=== PATIENT | male | born 1955 | race Caucasian/White ===

== ENCOUNTER → 2018-05-30 | Day surgery (SDC) | payer OTHER ==
[~2018-05-30] MED LIST: CIALIS5 MG PO; FENTANYL CITRATE/PF 100MCG/2 ML INJ ONE; GLUCAGON FOR INJ 1 MG VIAL ONE; HYOSCYAMINE SULFATE 0.5 MG/ML INJ ONE; LIDOCAINE HCL 2% LOCAL INJ 5 ML SDV VIAL INJ ONE; MIDAZOLAM HCL 2 MG/2 ML VIAL ONE; PRAVASTATIN SOD20 MG PO; PROPOFOL IV EMULSION 10 MG/ML 50 ML VIAL ONE; TYLENOL
--- OUTSIDE RECORDS SUMMARY | 2018-05-30 06:53 | XMS REPORT ---
Author Author [facility] Address Unknown Phone Unavailable Care Team Providers Care Well Flow Operator Name Role Phone Unavailable Unavailable Problems This patient has no known problems. Allergies, Adverse Reactions, Alerts This patient has no known allergies or adverse reactions. Medications This patient has no known medications. Results Test Description Test Time Test Comments Text Results Atomic Results Result Comments U/S, ABDOMINAL, COMPLETE 2017-08-26 11:38:00 Reason for Exam:->AAAReason for Exam:- >PalpitationsReason for Exam:->GERD FINAL REPORT Abdominal ultrasound dated 08/26/2017 Clinical information:AAAPalpitationsGERD Comment: Real-time transabdominal ultrasound was performed. Liver is normal in size and measures 14.3 cm in length. The echogenicity of the liver is heterogeneous. No focal lesion is noted in the liver. Spleen is normal in size without focal abnormality. Gallbladder is minimally distended. No gallstone is present. No biliary dilatation is seen. Common bile duct measures 4 mm in diameter. Main portal vein measures 11 mm in diameter. Pancreas is visualized and unremarkable. Right kidney measures 11.7 x 5.6 x 6.6 cm. Left kidney measures 12.2 x 5.9 x 5.3 cm. Echogenicity of both kidney is normal. No hydronephrosis or solid mass seen in either kidney. No cyst is seen in the either kidney. ascites is present in the abdomen. Fusiform approximately abdominal aortic aneurysm is present measuring 3.2 x 3.4 cm in diameter and 4.2 cm in length. IVC and Hepatic veins are patent. Impression: Proximal abdominal aortic aneurysm. Signed: Pennie Barton Verified Date/Time: 08/26/2017 11:38:36 Reading Location: [address] Radiology Reading Room , CHEST, 2 VIEWS 2017-08-26 09:55:00 Reason for Exam:->Abdominal aortic aneurysm, without rupture [I71.4] FINAL REPORT TECHNIQUE: Frontal and lateral chest radiographs dated 08/26/2017. CLINICAL HISTORY: Abdominal aortic aneurysm. COMPARISON STUDY: Chest radiograph dated 08/22/2016 FINDINGS: Lungs are clear. No pleural effusion or pneumothorax. Cardiomediastinal silhouette is normal in size. No pulmonary edema. No bone or soft tissue abnormalities are seen. IMPRESSION: Clear lungs. Signed: Najma Osegueraeport Verified Date/Time: 08/26/2017 09:55:50 Reading Location: [facility] Radiology Reading Room
--- OUTSIDE RECORDS SUMMARY | 2018-05-30 06:53 | XMS REPORT | Clinical Summary ---
Author Author JALIL [employer] [facility] Address Unknown Phone Unavailable Care Team Providers Care Home Care Physical Therapist Name Role Phone Ellie Terry PCP Allergies Not on File Medications Not on file Active Problems Not on file Encounters Care Team Description Date Type Specialty Sharif Erazo MD Abdominal aortic aneurysm without rupture (HCC); Palpitations; Gastroesophageal reflux disease without esophagitis 08/26/2017 Hospital Radiology Encounter Sharif Erazo MD Abdominal aortic aneurysm without rupture (HCC); Palpitations; Gastroesophageal reflux disease without esophagitis 08/26/2017 Hospital Encounter Sharif Erazo MD Abdominal aortic aneurysm without rupture (HCC) (Primary Dx); Palpitations; Gastroesophageal reflux disease without esophagitis 08/20/2017 Outside Orders Central Scheduling after 05/29/2017 Social History Date Tobacco Use Types Packs/Day Years Used Never Assessed Sex Assigned at Date Recorded Not on file Industry Job Start Date Occupation Not on file Not on file Not on file Travel End Travel History Travel Start No recent travel history available. Last Filed Vital Signs Not on file Plan of Treatment Not on file Procedures Comments Procedure Name Priority Date/Time Associated Diagnosis US ABDOMEN COMPLETE Routine 08/26/2017 Abdominal aortic aneurysm 10:51 AM CDT without rupture (HCC) Palpitations Gastroesophageal reflux disease without esophagitis XR CHEST 2 VIEWS Routine 08/26/2017 Abdominal aortic aneurysm 9:53 AM CDT without rupture (HCC) Palpitations Gastroesophageal reflux disease without esophagitis after 05/29/2017 Results * US Abdomen Complete (08/26/2017 10:51 AM CDT) Narrative Performed At FINAL REPORT Call [place] Abdominal ultrasound dated 08/26/2017 Clinical information:AAA Palpitations GERD Comment:Real-time transabdominal ultrasound was performed. Liver is normal in size and measures 14.3 cm in length. The echogenicity of the liver is heterogeneous.No focal lesion is noted in the liver.Spleen is normal in size without focal abnormality. Gallbladder is minimally distended. No gallstone is present. No biliary dilatation is seen. Common bile duct measures 4 mm in diameter.Main portal vein measures 11 mm in diameter. Pancreas is visualized and unremarkable. Right kidney measures 11.7 x 5.6 x 6.6 cm.Left kidney measures 12.2 x 5.9 x 5.3 cm.Echogenicity of both kidney is normal.No hydronephrosis or solid mass seen in either kidney.No cystis seen in the either kidney. ascites is present in the abdomen. Fusiform approximately abdominal aortic aneurysm is present measuring 3.2 x 3.4 cm in diameter and 4.2 cm in length. IVC and Hepatic veins are patent. Impression: Proximal abdominal aortic aneurysm. Signed: Pennie Barton MD Report Verified Date/Time:08/26/2017 11:38:36 Reading Location: [address] Radiology Reading Room Procedure Note Interface, External Ris In - 08/26/2017 11:40 AM CDT FINAL REPORT Abdominal ultrasound dated 08/26/2017 Clinical information:AAA Palpitations GERD Comment: Real-time transabdominal ultrasound was performed. Liver [...] Proximal abdominal aortic aneurysm. Signed: Pennie Barton MD Report Verified Date/Time: 08/26/2017 11:38:36 Reading Location: [address] Radiology Reading Room Performing Organization Address City/State/Zipcode Phone Number GE RIS * XR Chest 2 Views (08/26/2017 9:53 AM CDT) Narrative Performed At FINAL REPORT [facility] TECHNIQUE: Frontal and lateral chest radiographs dated 08/26/2017. CLINICAL HISTORY: Abdominal aortic aneurysm. COMPARISON STUDY: Chest radiograph dated 08/22/2016 FINDINGS: Lungs are clear. No pleural effusion or pneumothorax. Cardiomediastinal silhouette is normal in size. No pulmonary edema. No bone or soft tissue abnormalities are seen. IMPRESSION: Clear lungs. Signed: Najma Oseguera MD Report Verified Date/Time:08/26/2017 09:55:50 Reading Location: [facility] Radiology Reading Room Procedure Note Interface, External Ris In - 08/26/2017 9:58 AM CDT FINAL REPORT TECHNIQUE: Frontal and lateral chest radiographs dated 08/26/2017. CLINICAL HISTORY: Abdominal aortic aneurysm. COMPARISON STUDY: Chest radiograph dated 08/22/2016 FINDINGS: Lungs are clear. No pleural effusion or pneumothorax. Cardiomediastinal silhouette is normal in size. No pulmonary edema. No bone or soft tissue abnormalities are seen. IMPRESSION: Clear lungs. Signed: Najma Oseguera MD Report Verified Date/Time: 08/26/2017 09:55:50 Reading Location: [facility] Radiology Reading Room Performing Organization Address City/State/Zipcode Phone Number GE RIS after 05/29/2017 Insurance Payer Benefit Subscriber ID Type Phone Address Plan / Group [facility] [place] HMO xxxxxxxxx HMO/POS CARE POS SELECT CHOICE
[2018-05-30 11:05] LABS: BASOPHILS # (AUTO) 0.1 (0.0-0.1); BASOPHILS % 0.6 % (0.0-1.0); EOSINOPHILS # (AUTO) 0.3 (0.0-0.4); EOSINOPHILS % 3.9 % (0.0-6.0); HEMATOCRIT 40.4 % (38.2-49.6); HEMOGLOBIN 13.8 g/dL (14.0-18.0); LYMPHOCYTES # (AUTO) 2.2 (1.0-3.2); LYMPHOCYTES % 24.8 % (18.0-39.1); MEAN CORPUSCULAR HEMOGLOBIN 31.7 pg (28-32); MEAN CORPUSCULAR HGB CONC 34.2 g/dL (31-35); MEAN CORPUSCULAR VOLUME 92.7 fL (81-99); MONOCYTES # (AUTO) 0.5 (0.2-0.8); MONOCYTES % 5.6 % (4.4-11.3); NEUTROPHILS # (AUTO) 5.7 (2.1-6.9); NEUTROPHILS % 64.9 % (38.7-80.0); PLATELET COUNT 214 x10e3/uL (140-360); RED BLOOD COUNT 4.36 x10e6/uL (4.3-5.7); RED CELL DISTRIBUTION WIDTH 12.7 % (11.7-14.4)
[2018-05-30 11:21] LABS: ALANINE AMINOTRANSFERASE 22 IU/L (0-55); ALBUMIN 3.8 g/dL (3.5-5.0); ALBUMIN/GLOBULIN RATIO 1.7 (0.8-2.0); ALKALINE PHOSPHATASE 96 IU/L (40-150); ANION GAP 14.2 mmol/L (8-16); BLOOD UREA NITROGEN 9 mg/dL (7-26); BUN/CREATININE RATIO 10 (6-25); CARBON DIOXIDE 24 mmol/L (22-29); CHLORIDE 103 mmol/L (98-107); CREATININE, SERUM 0.88 mg/dL (0.72-1.25); EST GLOMERULAR FILTRATION RATE > 60 ML/MIN (60-); GLUCOSE 115 mg/dL (74-118); POTASSIUM 4.2 mmol/L (3.5-5.1); SODIUM 137 mmol/L (136-145)
--- NOTE | 2018-05-30 12:24 | Operative Report ---
DATE OF PROCEDURE: May 30, 2018 PROCEDURES PERFORMED 1. Esophagogastroduodenoscopy with biopsies. 2. Colonoscopy with polypectomy. INDICATIONS FOR EGD: Heartburn, indigestion. INDICATIONS FOR COLONOSCOPY: Surveillance colonoscopy, personal history of colon polyps. Last colonoscopy, 2015, prep was suboptimal. MEDICATION: Patient was done under MAC. Please see anesthesiologist's note. PROCEDURE: With the patient in left lateral decubitus position, the flexible fiberoptic gastroscope was inserted into the esophagus under direct visualization without any difficulty. Erosions were noted in distal esophagus. Minute tongues of velvety-red mucosa were noted to extend proximally from the GE junction, and biopsies were obtained to rule out Knapp's. The scope was then advanced with ease into the stomach traversing a small sliding hiatal hernia. Mucosa overlying the antrum and the body revealed some patchy erythema and [id number] edema. Biopsies were obtained and sent to stain for H. pylori. The pylorus was of normal contour and shape, intubated with ease, and the scope was advanced all the way to the 2nd portion of the duodenum. The scope was then withdrawn slowly. Mucosa overlying the proximal 2nd portion and the duodenal bulb appeared to be within normal limits. The scope was then withdrawn back into the stomach and retroflexed, and mucosa overlying the fundus and the cardia appeared to be within normal limits. The scope was then straightened out. It was subsequently withdrawn. Patient tolerated the procedure well. IMPRESSION 1. Erosive esophagitis. 2. Rule out Knapp's esophagus. 3. Small sliding hiatal hernia. 4. Gastritis, biopsied. Biopsies sent to stain for Helicobacter pylori. PLAN: Follow up histology. Initiate Protonix 40 mg 1 p.o. q.a.m a.c. Patient might need a followup EGD in 2 months after all the erosions resolve to check for a full extent of Knapp's esophagus. The patient was then turned around; and after adequate lubrication of the anal canal, a flexible fiberoptic Olympus colonoscope was inserted into the rectum with ease and advanced all the way to the cecum. It was then withdrawn slowly. Mucosa overlying the cecum and the ascending colon appeared to be within normal limits. One polyp was hot biopsied from the transverse colon. The descending colon appeared to be within normal limits. Three polyps were hot biopsied from the sigmoid colon. Four polyps were hot biopsied from the rectum. Scope was then retroflexed into the distal rectum. Large internal hemorrhoids were noted, none of which was actively bleeding. The scope was then straightened out. It was subsequently withdrawn. Patient tolerated the procedure well. IMPRESSION 1. Transverse colon polyp, minute, hot biopsied. 2. Sigmoid colon polyps x3, minute, hot biopsied. 3. Rectal polyps x4, minute, hot biopsied. 4. Internal hemorrhoids, none actively bleeding. PLAN: Follow up histology. Initiate high-fiber, low-fat diet. Initiate high-fiber supplement. A total of 8 polyps were removed. Patient might benefit from a followup colonoscopy in 3 years. Job#: [id number] LPA
== END | disposition home or self-care (01) ==
LOC: OR 06:51
PROVIDERS: ATTEND Internal Medicine Gastroenterology
DX: Z12.11 Encounter for screening for malignant neoplasm of colon (principal); Z86.010 Personal history of colon polyps; R12 Heartburn; K21.0 Gastro-esophageal reflux disease with esophagitis; K22.10 Ulcer of esophagus without bleeding; K44.9 Diaphragmatic hernia without obstruction or gangrene; K29.70 Gastritis, unspecified, without bleeding; K63.5 Polyp of colon; K62.1 Rectal polyp; K64.8 Other hemorrhoids; D12.3 Benign neoplasm of transverse colon; Z01.812 Encounter for preprocedural laboratory examination
CPT/HCPCS: 36415; 43239; 45384; 80053; 85025; 93005; J1610; J1980; J2001; J2250

== ENCOUNTER → 2018-08-01 | Day surgery (SDC) | payer OTHER ==
[~2018-08-01] MED LIST changes: +ATORVASTATIN CA20 MG PO; -GLUCAGON FOR INJ 1 MG VIAL ONE; -HYOSCYAMINE SULFATE 0.5 MG/ML INJ ONE; +PANTOPRAZOLE SO40 MG PO
[2018-08-01 14:00] LABS: ALBUMIN 4.1 g/dL (3.5-5.0); BILIRUBIN,DIRECT 0.2 mg/dL (0.0-0.5)
--- NOTE | 2018-08-01 19:56 | Operative Report ---
DATE OF PROCEDURE: 08/01/2018 SURGEON: Suman Andrade MD PROCEDURE: EGD with biopsies. INDICATIONS FOR EGD: History of erosive esophagitis, Knapp esophagus. EGD is being carried out to check for full extent Knapp esophagus after 2 months of PPI therapy. MEDICATION: The patient was done under MAC, please see anesthesiologist's note. PROCEDURE IN DETAIL: With the patient in the left lateral decubitus position, a flexible fiberoptic Olympus gastroscope was introduced into the esophagus under direct visualization without any difficulty. Grade 1 esophageal varices were noted without active bleeding or stigmata of recent hemorrhage. The previously described erosions have resolved. Minute tongues of velvety red mucosa were noted to extend proximally from the GE junction and biopsies were obtained. The scope was then advanced with ease into the stomach traversing a small sliding hiatal hernia. Mucosa overlying the antrum and the body revealed some patchy erythema. The pylorus was of normal contour and shape. It was intubated with ease and the scope was advanced all the way to the second portion of the duodenum. The scope was then withdrawn slowly. Mucosa overlying the proximal second portion and duodenal bulb appeared to be within normal limits. The scope was then withdrawn back into the stomach and retroflexed and the fundus appeared to be within normal limits. There were ? cardiac varices noted. There was no active bleeding or stigmata of recent hemorrhage. The scope was then straightened out, it was subsequently withdrawn. The patient tolerated the procedure well. IMPRESSION: 1. Grade 1 esophageal varices without active bleeding or stigmata of recent hemorrhage. 2. Knapp esophagus. 3. Small sliding hiatal hernia. 4. Gastritis, mild. PLAN: Follow up histology. Continue Protonix 40 mg 1 p.o. q.a.m. a.c. Suman Andrade MD [facility]/ANNA /[id number]
--- OUTSIDE RECORDS SUMMARY | 2018-08-03 12:05 | XMS REPORT | Clinical Summary ---
Author Author JALIL [email or web address] [facility] Address Unknown Phone Unavailable Care Team Providers Care Government Contracts Manager Name Role Phone Ellie Terry PCP Allergies [...] esophagitis 08/20/2017 Outside Orders Central Scheduling after 08/02/2017 Social History Date Tobacco Use Types Packs/Day [...] Palpitations Gastroesophageal reflux disease without esophagitis after 08/02/2017 Results * US Abdomen Complete (08/26/2017 10:51 AM CDT) Narrative Performed At FINAL REPORT [facility] Abdominal ultrasound dated 08/26/2017 Clinical information:AAA Palpitations [...] MD Report Verified Date/Time:08/26/2017 11:38:36 Reading Location: [address] Radiology Reading Room Procedure Note Interface, [...] Report Verified Date/Time: 08/26/2017 11:38:36 Reading Location: [address] Radiology Reading Room Performing Organization Address [...] MD Report Verified Date/Time:08/26/2017 09:55:50 Reading [facility]: [facility] Radiology Reading Room Procedure Note Interface, [...] Report Verified Date/Time: 08/26/2017 09:55:50 Reading Location: [facility] Radiology Reading Room Performing Organization Address City/State/Zipcode Phone Number GE RIS after 08/02/2017 Insurance Payer Benefit Subscriber ID Type Phone Address Plan / Group [facility] [place] HMO xxxxxxxxx HMO/POS CARE POS SELECT CHOICE
== END | disposition home or self-care (01) ==
LOC: OR 08:51
PROVIDERS: ATTEND Internal Medicine Gastroenterology
DX: K22.70 Barrett's esophagus without dysplasia (principal); K29.70 Gastritis, unspecified, without bleeding; K21.0 Gastro-esophageal reflux disease with esophagitis; I85.00 Esophageal varices without bleeding; K44.9 Diaphragmatic hernia without obstruction or gangrene; I44.0 Atrioventricular block, first degree; Z01.810 Encounter for preprocedural cardiovascular examination
CPT/HCPCS: 36415; 43239; 80076; 93005; J2001; J2250; J2704

== ENCOUNTER → 2018-09-04 | Outpatient (CLI) | payer OTHER ==
[~2018-09-04] MED LIST changes: -FENTANYL CITRATE/PF 100MCG/2 ML INJ ONE; -LIDOCAINE HCL 2% LOCAL INJ 5 ML SDV VIAL INJ ONE; -MIDAZOLAM HCL 2 MG/2 ML VIAL ONE; -PROPOFOL IV EMULSION 10 MG/ML 50 ML VIAL ONE
--- NOTE | 2018-09-04 10:45 | Diagnostic Imaging Report ---
EXAM: US ABDOMEN COMPLETE DATE: 09/04/2018 7:55 AM \ INDICATION: Esophageal varices COMPARISON: None TECHNIQUE: Transverse and longitudinal thakur scale and color doppler sonographic images of the upper abdomen were obtained. FINDINGS: LIVER 14.5 cm in the right midclavicular line. Normal echogenicity, normal contour, no masses. SPLEEN 9.7 cm in maximum diameter. Normal echogenicity, no masses. GALLBLADDER Small amount of echogenic sludge in the dependent portion of the gallbladder. No shadowing calculus, wall thickening, or pericholecystic fluid. Negative sonographic Prince's sign. BILE DUCTS No intra nor extra-hepatic biliary dilation. Common bile duct measures 0.3 cm PANCREAS: Visualized portions are normal. RIGHT KIDNEY: 11.7 cm Echogenicity: Normal Collecting System: No hydronephrosis Stones: None Cyst/Mass: None LEFT KIDNEY: 11.5 cm Echogenicity: Normal Collecting System: No hydronephrosis Stones: None Cyst/Mass: None VESSELS: Aorta: Nonaneurysmal proximally. Poorly visualized distally due to overlying bowel gas. Inferior Vena Cava: Patent Main Portal Vein: 0.9 cm, normal size with hepatopetal flow. FREE FLUID: None IMPRESSION: Small amount of gallbladder sludge, without cholelithiasis or sonographic findings of acute cholecystitis. No sonographic findings of cirrhosis or portal hypertension in this patient with reported history of esophageal varices. Signed by: Dr. Scott Fontanez M.D. on 09/04/2018 10:42 AM
== END ==
LOC: US 07:42
PROVIDERS: ATTEND Internal Medicine Gastroenterology
DX: I85.00 Esophageal varices without bleeding (principal)
CPT/HCPCS: 76700

== ENCOUNTER → 2022-07-10 | Day surgery (SDC) | payer MEDICARE ==
[2022-07-03 10:57] LABS: BASOPHILS # (AUTO) 0.1 (0.0-0.1); EOSINOPHILS # (AUTO) 0.5 (0.0-0.4); EOSINOPHILS % 6.4 % (0.0-6.0); HEMATOCRIT 41.9 % (38.2-49.6); HEMOGLOBIN 14.7 g/dL (14.0-18.0); LYMPHOCYTES # (AUTO) 2.8 (1.0-3.2); LYMPHOCYTES % 35.4 % (18.0-39.1); MEAN CORPUSCULAR HEMOGLOBIN 32.2 pg (28-32); MEAN CORPUSCULAR HGB CONC 35.1 g/dL (31-35); MEAN CORPUSCULAR VOLUME 91.9 fL (81-99); MONOCYTES # (AUTO) 0.7 (0.2-0.8); MONOCYTES % 8.4 % (4.4-11.3); NEUTROPHILS # (AUTO) 3.8 (2.1-6.9); NEUTROPHILS % 48.3 % (38.7-80.0); PLATELET COUNT 234 x10e3/uL (140-360); RED BLOOD COUNT 4.56 x10e6/uL (4.3-5.7); RED CELL DISTRIBUTION WIDTH 13.1 % (11.7-14.4)
[~2022-07-10] MED LIST changes: +HYOSCYAMINE SULFATE 0.5 MG/ML INJ ONE; +METOCLOPRAMIDE HCL 10 MG/2ML VIAL ONE; +PROPOFOL IV EMULSION 10 MG/ML 20 ML VIAL ONE
[2022-07-10 12:05] VITALS: BP 119/83
== END | disposition home or self-care (01) ==
LOC: OR 08:12
PROVIDERS: ATTEND Internal Medicine Gastroenterology
DX: Z09 Encounter for follow-up examination after completed treatment for conditions other than malignant neoplasm (principal); D12.3 Benign neoplasm of transverse colon; K64.8 Other hemorrhoids; Z71.3 Dietary counseling and surveillance; E78.00 Pure hypercholesterolemia, unspecified; R03.0 Elevated blood-pressure reading, without diagnosis of hypertension; Z71.89 Other specified counseling; N52.9 Male erectile dysfunction, unspecified; Z01.810 Encounter for preprocedural cardiovascular examination; Z01.812 Encounter for preprocedural laboratory examination; Z79.899 Other long term (current) drug therapy; Z68.28 Body mass index [BMI] 28.0-28.9, adult
CPT/HCPCS: 36415; 45380; 85025; 88305; 93005; J1980; J2704; J2765; 45378

== ENCOUNTER → 2024-07-14 | Day surgery (SDC) | payer MEDICARE ==
[2024-07-05 15:01] LABS: BASOPHILS # (AUTO) 0.1 (0.0-0.1); BASOPHILS % 0.6 % (0.0-1.0); EOSINOPHILS # (AUTO) 0.4 (0.0-0.4); EOSINOPHILS % 4.3 % (0.0-6.0); HEMATOCRIT 40.3 % (38.2-49.6); HEMOGLOBIN 13.9 g/dL (14.0-18.0); LYMPHOCYTES # (AUTO) 3.5 (1.0-3.2); LYMPHOCYTES % 34.9 % (18.0-39.1); MEAN CORPUSCULAR HGB CONC 34.5 g/dL (31-35); MEAN CORPUSCULAR VOLUME 92.6 fL (81-99); MONOCYTES # (AUTO) 0.6 (0.2-0.8); MONOCYTES % 5.5 % (4.4-11.3); NEUTROPHILS # (AUTO) 5.5 (2.1-6.9); NEUTROPHILS % 54.4 % (38.7-80.0); PLATELET COUNT 251 x10e3/uL (140-360); RED BLOOD COUNT 4.35 x10e6/uL (4.3-5.7); RED CELL DISTRIBUTION WIDTH 13.2 % (11.7-14.4); WHITE BLOOD COUNT 10.02 x10e3/uL (4.8-10.8)
[~2024-07-14] MED LIST changes: +BENZOCAINE/TETRACAINE/BUTAMBEN AERO SPRAY 56 GM CAN ONE; +FENTANYL CITRATE/PF 100MCG/2 ML INJ ONE; +GLYCOPYRROLATE2 MG PO; -HYOSCYAMINE SULFATE 0.5 MG/ML INJ ONE; +KETAMINE 50MG/5ML SYR ONE; +LIDOCAINE HCL 2% LOCAL INJ 5 ML SDV VIAL INJ ONE; +LISINOPRIL5 MG PO; -METOCLOPRAMIDE HCL 10 MG/2ML VIAL ONE
[2024-07-14] MEDS: LACTATED RINGER'S 1,000 ML ONE (10:29)
[2024-07-14 13:50] VITALS: BP 106/69; PULSE 66; RESP 14; O2SAT 95
== END | disposition home or self-care (01) ==
LOC: OR 09:58
PROVIDERS: ATTEND Internal Medicine Gastroenterology
DX: K22.70 Barrett's esophagus without dysplasia (principal); K29.60 Other gastritis without bleeding; I85.00 Esophageal varices without bleeding; K31.89 Other diseases of stomach and duodenum; K21.9 Gastro-esophageal reflux disease without esophagitis; K44.9 Diaphragmatic hernia without obstruction or gangrene; Z86.0100 Personal history of colon polyps, unspecified; Z71.3 Dietary counseling and surveillance; I10 Essential (primary) hypertension; Z71.89 Other specified counseling; E78.00 Pure hypercholesterolemia, unspecified; N52.9 Male erectile dysfunction, unspecified; Z01.810 Encounter for preprocedural cardiovascular examination; Z01.812 Encounter for preprocedural laboratory examination; Z79.899 Other long term (current) drug therapy; Z68.29 Body mass index [BMI] 29.0-29.9, adult
CPT/HCPCS: 36415; 43239; 85025; 88305; 88342; 93005; J2003; J2470; J2704; J3010; J7121

== ENCOUNTER → 2024-07-27 | Outpatient (REF) | payer MEDICARE ==
[~2024-07-27] MED LIST changes: -BENZOCAINE/TETRACAINE/BUTAMBEN AERO SPRAY 56 GM CAN ONE; -FENTANYL CITRATE/PF 100MCG/2 ML INJ ONE; -KETAMINE 50MG/5ML SYR ONE; -LIDOCAINE HCL 2% LOCAL INJ 5 ML SDV VIAL INJ ONE; -PROPOFOL IV EMULSION 10 MG/ML 20 ML VIAL ONE
== END ==
LOC: US 09:39
PROVIDERS: ATTEND Internal Medicine Gastroenterology
DX: I85.00 Esophageal varices without bleeding (principal)
CPT/HCPCS: 76705